=== PATIENT | female | born 1990 | race Caucasian/White ===

== ENCOUNTER 2018-08-30 19:45 | Emergency (ER) | payer SELFPAY ==
[~2018-08-30] VITALS: Ht 157.5 cm; Wt 54.5 kg
[2018-08-30 20:03] VITALS: Ht 157.5 cm; Wt 54.5 kg
[2018-08-30 21:18] VITALS: BP 112/86
== END 2018-08-30 21:18 | disposition home or self-care (01) ==
LOC: ED 19:45
DX: S66.912A Strain of unspecified muscle, fascia and tendon at wrist and hand level, left hand, initial encounter (principal); W01.0XXA Fall on same level from slipping, tripping and stumbling without subsequent striking against object, initial encounter; Y93.11 Activity, swimming; Y92.34 Swimming pool (public) as the place of occurrence of the external cause; Y99.8 Other external cause status
CPT/HCPCS: A4570